=== PATIENT | male | born 1995 | race Caucasian/White ===

== ENCOUNTER 2017-11-28 23:20 | Emergency (ER) | payer BC ==
[2017-11-28 23:38] VITALS: RESP 16
[2017-11-28] MEDS ORDERED: LIDOCAINE HCL 4% TOPICAL SOLN 50ML ONE (23:49)
[2017-11-28] MEDS ORDERED: ACETAMINOPHEN 500 MG TAB ONE (23:50)
[2017-11-28] MEDS ORDERED: ACETAMINOPHEN 500 MG TAB PO ONE (23:51)
--- NOTE | 2017-11-29 00:15 | EDPHY ---
H & P Stated Complaint: L ear pain Time Seen by Provider: 11/28/17 23:41 HPI/ROS: Chief Complaint: Ear pain HPI: 22-year-old male's having flu-like symptoms and left ear pain for the last several days. He was seen in urgent care yesterday and started on azithromycin. Patient states that his left ear pain is getting worse. He has flu-like symptoms are improved. No congestion. No fevers or chills. He has been taking ibuprofen and acetaminophen with some relief today. No cough. No shortness of breath. No sore throat. ROS: 10 point Review of Systems is negative except as noted in the HPI. PMH: Denies Social History: No smoking, no alcohol, no recreational drug use Family History: non-contributory Physical Exam: Gen: Awake, Alert, No Distress HEENT: Ears: Left TM is markedly erythematous bulging with a purulent effusion , right TM is normal Nose: no rhinorrhea Eyes: PERRLA, EOMI Mouth: Moist mucosa Neck: Supple, no JVD Chest: nontender, lungs clear to auscultation Heart: S1, S2 normal, no murmur Abd: Soft, non-tender, no guarding Back: no CVA tenderness, no midline tenderness Ext: no edema, non-tender Skin: no rash Neuro: CN II-XII intact, Sensation grossly intact, Strength 5/5 in bilateral upper and lower extremities - Personal History Current Tetanus/Diphtheria Vaccine: Yes Current Tetanus Diphtheria and Acellular Pertussis (TDAP): Yes - Medical/Surgical History Hx Asthma: No Hx Chronic Respiratory Disease: No Hx Diabetes: No Hx Cardiac Disease: No Hx Renal Disease: No Hx Cirrhosis: No Hx Alcoholism: No Hx HIV/AIDS: No Hx Splenectomy or Spleen Trauma: No - Social History Smoking Status: Never smoked Constitutional: Initial Vital Signs Temperature (C) 36.9 C 11/28/17 23:22 Heart Rate 51 L 11/28/17 23:22 Respiratory Rate 16 11/28/17 23:22 Blood Pressure 144/77 H 11/28/17 23:22 O2 Sat (%) 98 11/28/17 23:22 O2 Delivery Mode Room Air Allergies/Adverse Reactions: No Known Allergies Allergy (Unverified 11/28/17 23:23) Medical Decision Making ED Course/Re-evaluation: Patient has otitis media. He is being covered appropriately with antibiotics. He has only been taking the mix with the last 24 hr. Addendum acetaminophen here. I have also given him topical lidocaine with bupivacaine and epinephrine with some relief. Will be discharged follow up at [facility], return for any concerns for at - Data Points Medications Given: Discontinued Medications Acetaminophen (Tylenol) 1,000 mg PO EDNOW ONE Stop: 11/28/17 23:52 Last Admin: 11/28/17 23:52 Dose: 1,000 mg Departure - Departure Disposition: Home, Routine, Self-Care Clinical Impression: Acute otitis media Condition: Good Instructions: Ear Infection (ED), Hydrocodone/Acetaminophen (By mouth) Additional Instructions: Take ibuprofen, 600 mg 3 times a day. You also take acetaminophen, 1000 mg every 6 hr. You may apply warm compresses as needed for pain. Take your full course of antibiotics. Follow up with primary care physician in 2-3 days for further evaluation. Referrals: NONE *PRIMARY CARE P,. [Primary Care Provider] - As per Instructions
[2017-11-29] MEDS ORDERED: HYDROCOD/APAP 5/325 PREPACK#6 BTL TAKEHOME ONE (00:19)
[2017-11-29 01:09] VITALS: BP 138/75; PULSE 60; TEMP 98.1; O2SAT 95
== END 2017-11-29 00:40 | disposition home or self-care (01) ==
DX: H66.92 Otitis media, unspecified, left ear (principal)